=== PATIENT | female | born 1965 | race Caucasian/White ===

== ENCOUNTER → 2020-02-26 | Outpatient (CLI) | payer BC ==
--- NOTE | 2020-02-26 09:38 | US ---
EXAMINATION TYPE: US abdomen limited DATE OF EXAM: 02/26/2020 COMPARISON: NONE CLINICAL HISTORY: R10.13 Epigastric Pain. Intermittent epigastric pain x 6 month EXAM MEASUREMENTS: Liver Length: 14.9 cm Gallbladder Wall: 0.2 cm CBD: 0.6 cm Right Kidney: 11.5 x 4.8 x 4.6 cm Pancreas: visualized portions wnl, tail obscured by overlying midline bowel gas Liver: wnl Gallbladder: wnl Evidence for sonographic Talbot's sign: no CBD: wnl Right Kidney: hydronephrosis, 0.9cm echogenic stone superior pole, 1.0cm echogenic stone inferior po le IMPRESSION: 1. Right-sided nephrolithiasis with moderate hydronephrosis. Ureteral stone in the differential diagn osis. Correlate clinically.
== END | disposition home or self-care (01) ==
LOC: RADUSWWP 08:45
PROVIDERS: ATTEND Family Medicine
DX: N13.2 Hydronephrosis with renal and ureteral calculous obstruction (principal)
CPT/HCPCS: 76705

== ENCOUNTER → 2020-03-11 | Outpatient (CLI) | payer BC ==
--- NOTE | 2020-03-11 14:07 | MR ---
EXAMINATION TYPE: MR shoulder LT wo con DATE OF EXAM: 03/11/2020 12:56 PM COMPARISON: NONE HISTORY: Pain in left shoulder, lack of movement TECHNIQUE: Multiplanar multispin echo imaging of the left shoulder was performed. FINDINGS: Rotator cuff : There is thickening and heterogeneity of the supraspinatus tendon compatible chronic t endinopathy. No evidence for full-thickness tear. There is no complete or bursal/articular sided part ial rotator cuff tear. The subscapularis constituent of the rotator cuff is intact. Bursa: No bursal effusion or thickening is seen. Musculature: There is no muscular tear, contusion, or atrophy. Acromioclavicular joint : There are mild degenerative changes of the acromioclavicular joint. Lateral downsloping of the acromion as well as subacromial spur results in impingement. Osseous structures : There are no fractures or regions of abnormal bone marrow signal intensity. Long biceps tendon : The biceps tendon is normally situated within the bicipital groove. No complete or partial biceps tendon tear is present. Glenohumeral Joint fluid : There is no glenohumeral joint effusion. Cartilage and Bone : No focal hyaline cartilage defects are noted. No Hill-Sachs, reverse Hill-Sachs, or bony Bankart lesions are seen. Labrum : There are no SLAP or soft tissue Bankart lesions. No paralabral cysts are seen. OTHER FINDINGS : none IMPRESSION: 1. Chronic tendinopathy supraspinatus tendon secondary to impingement.
== END | disposition home or self-care (01) ==
LOC: RADMRIMAIN 11:50
PROVIDERS: ATTEND Nurse Practitioner Family
DX: M75.82 Other shoulder lesions, left shoulder (principal)